=== PATIENT | male | born 2000 | race Caucasian/White ===

== ENCOUNTER 2018-09-01 10:01 | Emergency (ER) | payer OTHER ==
[~2018-09-01] VITALS: Wt 90.9 kg
[~2018-09-01 10:01] MED LIST: FERR-55 PO; IBUP-1542 PO
[2018-09-01 10:26] VITALS: BP 141/85; PULSE 88; RESP 20; Wt 90.9 kg
--- NOTE | 2018-09-01 11:06 | ERD ---
ER Documentation Chief Complaint Chief Complaint dysuria, increased frequency HPI 7-year-old male with a complaint of dysuria, urgency, and hesitation, for the past week. Patient denies being sexually active. Patient is states he has not had UTIs in the past. Patient denies any penile discharge, hematuria, flank pain, nausea, vomiting, fevers, chills, urinary retention. None noted on her chief complaint, the patient stated that he has been experiencing some tingling in his fourth and fifth left digits for the past 6 months. 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 Patient denies any impaired range of motion, numbness, headaches, trauma, pain. ROS All systems reviewed and are negative except as per history of present illness. Medications Home Meds Active Scripts Ibuprofen* (Motrin*) 600 Mg Tab, 600 MG PO Q6, #30 TAB Prov:THANIA YOUNG PA-C 10/29/14 Reported Medications Ferrous Sulfate* (Ferrous Sulfate*) 325 Mg Tablet, 325 MG PO DAILY, TAB 09/29/14 Allergies Allergies: Coded Allergies: No Known Allergy (Unverified , 09/29/14) PMhx/Soc History of Surgery: No Anesthesia Reaction: No Hx Neurological Disorder: No Hx Respiratory Disorders: No Hx Cardiac Disorders: No Hx Psychiatric Problems: No Hx Miscellaneous Medical Probl: Yes (depression) Hx Alcohol Use: No Hx Substance Use: No Hx Tobacco Use: No FmHx Family History: No diabetes, No coronary disease, No other Physical Exam Vitals Vital Signs Date Temp Pulse Resp B/P (MAP) Pulse Ox O2 O2 Flow FiO2 Time Delivery Rate 09/01/18 98.1 88 20 141/85 99 10:26 (103) Physical Exam Const: No acute distress Head: Atraumatic Eyes: Normal Conjunctiva ENT: Normal External Ears, Nose and Mouth. Neck: Full range of motion. No meningismus. Resp: Clear to auscultation bilaterally Cardio: Regular rate and rhythm, no murmurs Abd: Soft, non tender, non distended. Normal bowel sounds Skin: No petechiae or rashes Back: No midline or flank tenderness Ext: No cyanosis, or edema all fingers have full range of motion. And strength intact. There is no edema erythema noted to any of the phalanges. Sensation is intact in all the phalanges. Neur: Awake and alert Psych: Normal Mood and Affect : Glans and foreskin are nonedematous erythematous. There is no penile discharge noted. Testes are non-tender to palpation and nonedematous bilaterally. There is no scrotal edema or erythema. There is no transverse lay. Procedures/MDM MDM: Patient's presentation consistent with UTI. Since UTIs are not common in males advised patient to follow-up with urologist. Patient understood and agreed. Patient denied being sexually active so I do not think that he needs to be treated for STD at this time. I did have the family leave when I asked him a question and he emphatically denied being sexually active. I have low suspicion for pyelonephritis, nephrolithiasis, appendicitis, epididymitis, urethritis, orchitis, balanitis, prostatitis, phimosis, priapism, penile contusion, incarcerated hernia or strangulated hernia, or any emergent condition. Patient given Rx for Keflex. 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 Patient was put in a wrist splint and advised to follow-up with his primary care and to refrain from steve until symptoms resolve. I have low suspicion for neurovascular compromise, compartment syndrome, fracture, osteomyelitis, septic joint, DVT, or other emergent condition. At this time, patient is stable for discharge and outpatient management. I have instructed the patient to follow-up with his/her primary care physician in 1-2 days. I have discussed with the patient the possibility of needing to see a specialist for further workup and imaging studies if symptoms persist. I have instructed the patient to promptly return to the ER for any new or worsening symptoms including but not limited to increased pain, fever, nausea, vomiting, weakness or LOC. The patient and/or family expressed understanding of and agreement with this plan. All questions were answered. Home care instructions were provided. DISCLAIMER: Inadvertent spelling and grammatical errors are likely due to EHR/dictation software use and do not reflect on the overall quality of patient care. Also, please note that the electronic time recorded on this note does not necessarily reflect the actual time of the patient encounter. Departure Diagnosis: Primary Impression: UTI (urinary tract infection) Additional Impression: Carpal tunnel syndrome Condition: Stable EARL VARELA Sep 01, 2018 11:06
[2018-09-01] MEDS ORDERED: CEPH-443 PO (11:49)
== END 2018-09-01 12:00 | disposition home or self-care (01) ==
LOC: FTE 10:01
DX: N39.0 Urinary tract infection, site not specified (principal); G56.02 Carpal tunnel syndrome, left upper limb
CPT/HCPCS: 29125; 81003; 87086; Z7502